=== PATIENT | female | born 1975 | race American Indian/Alaskan Native ===

== ENCOUNTER 2019-01-16 08:03 | Emergency (ER) | payer OTHER ==
[2019-01-16] MEDS ORDERED: ZOFRAN IV ONE (08:21)
[2019-01-16] MEDS ORDERED: MORPHINE IV ONE (08:21)
--- NOTE | 2019-01-16 08:26 | Emergency Department Report ---
ED Abdominal Pain HPI - General Chief Complaint: Abdominal Pain Stated Complaint: LFT ABD PAIN Time Seen by Provider: 01/16/19 08:21 Source: patient Mode of arrival: Ambulatory Limitations: No Limitations - History of Present Illness Initial Comments: Mrs. Orr is a 43-year-old female with history of uterine fibroids and ectopic who presents with left lower quadrant pain for the past 4 days. 7 out of 10 severe pain. Hurts with walking laughing coughing. She's had diarrhea. She feels bloated. 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 NO vaginal bleeding. Her last menstrual cycle occurred last month. She is currently not on contraceptives. MD Complaint: abdominal pain -: Gradual, days(s) (4) Location: LLQ Radiation: none Severity: moderate, severe Severity scale (0 -10): 7 Quality: sharp Consistency: constant Improves With: nothing Worsens With: movement, other (urination) Associated Symptoms: diarrhea - Related Data Previous Rx's Medication Instructions Recorded Last Taken Type HYDROcodone/APAP 5-325 [[place] 1 each PO Q6HR PRN #10 tablet 01/16/19 Unknown Rx 5/325] Ibuprofen [Motrin 800 MG tab] 800 mg PO Q8HR PRN #15 tablet 01/16/19 Unknown Rx Allergies Allergy/AdvReac Type Severity Reaction Status Date / Time No Known Allergies Allergy Unverified 01/16/19 08:10 ED Review of Systems ROS: Stated complaint: LFT ABD PAIN Other details as noted in HPI Comment: All other systems reviewed and negative Constitutional: denies: fever, malaise Respiratory: denies: cough Gastrointestinal: abdominal pain, diarrhea Genitourinary: dysuria ED Past Medical Hx - Past Medical History Previous Medical History?: No - Surgical History Past Surgical History?: Yes Additional Surgical History: Ectopic - Social History Smoking Status: Never Smoker Substance Use Type: Alcohol - Medications Home Medications: Home Medications Medication Instructions Recorded Confirmed Last Taken Type HYDROcodone/APAP 5-325 [[place] 1 each PO Q6HR PRN #10 tablet 01/16/19 Unknown Rx 5/325] Ibuprofen [Motrin 800 MG tab] 800 mg PO Q8HR PRN #15 tablet 01/16/19 Unknown Rx ED Physical Exam - General Limitations: No Limitations General appearance: alert, in no apparent distress, other (appears in pain, walking gingerly holding stomach) - Head Head exam: Present: atraumatic, normocephalic - Eye Eye exam: Present: normal appearance - ENT ENT exam: Present: mucous membranes moist - Neck Neck exam: Present: normal inspection, full ROM - Respiratory Respiratory exam: Present: normal lung sounds bilaterally. Absent: respiratory distress, wheezes, rales, rhonchi - Cardiovascular Cardiovascular Exam: Present: regular rate, normal rhythm, normal heart sounds. Absent: systolic murmur, diastolic murmur, rubs, gallop - GI/Abdominal GI/Abdominal exam: Present: soft, distended (gravid uterus on palpation), normal bowel sounds. Absent: tenderness, guarding, rebound - Extremities Exam Extremities exam: Present: normal inspection - Neurological Exam Neurological exam: Present: alert, oriented X3 - Psychiatric Psychiatric exam: Present: normal affect, normal mood - Skin Skin exam: Present: warm, dry, intact, normal color. Absent: rash ED Course Vital Signs 01/16/19 08:10 Temperature 98.3 F Pulse Rate 74 Respiratory 18 Rate Blood Pressure 133/85 O2 Sat by Pulse 98 Oximetry ED Medical Decision Making - Lab Data Result diagrams: 01/16/19 08:24 01/16/19 08:24 - Radiology Data Radiology results: report reviewed - Medical Decision Making 43-year-old female presents to the left lower quadrant pain differential diagnosis includes pain due to uterine fibroids, ovarian cyst, diverticulitis, ectopic , ureteral calculus, urinary tract infection. Upon consideration of impressive physical exam, uterus is extremely large and protruding. I suspect pain is due to uterine fibroids. She does not have evidence of acute inflammatory process on CT scan. , I do not suspect ovarian torsion. She resides in [facility]. However she is in [place] for 2 months of training for a new position. She plans to have uterine fibroid embolization procedure. However, her new employment has cause a delay in her care. She is followed by musculoskeletal physician in [place]. Prescribed ibuprofen and [place]. Referred to local musculoskeletal physician. CT scan revealed multiple uterine fibroids and either complicated fibroids or ovarian cysts in the left adnexa Pain is much improved. Critical care attestation.: If time is entered above; I have spent that time in minutes in the direct care of this critically ill patient, excluding procedure time. ED Disposition Clinical Impression: Uterine fibroid, Abdominal pain Disposition: TO HOME OR SELFCARE Is pt being admited?: No Does the pt Need Aspirin: No Condition: Stable Instructions: Uterine Fibroids (ED), Abdominal Pain (ED) Prescriptions: Ibuprofen [Motrin 800 MG tab] 800 mg PO Q8HR PRN #15 tablet PRN Reason: Pain , Severe (7-10) HYDROcodone/APAP 5-325 [[place] 5/325] 1 each PO Q6HR PRN #10 tablet PRN Reason: Pain Referrals: MARY GRACE CHEN MD [Staff Physician] - 3-5 Days Forms: Work/School Release Form(ED)
[2019-01-16 08:36] LABS: Basophils % (Auto) 0.5 % (0.0-1.8); Eosinophils # (Auto) 0.2 K/mm3 (0.0-0.4); Hematocrit 37.9 % (30.3-42.9); Hemoglobin 12.5 gm/dl (10.1-14.3); Lymphocytes # (Auto) 1.5 K/mm3 (1.2-5.4); Lymphocytes % (Auto) 20.5 % (13.4-35.0); Mean Corpuscular HGB Conc 33 % (30-34); Mean Corpuscular Volume 84 fl (79-97); Monocytes # (Auto) 0.6 K/mm3 (0.0-0.8); Monocytes % (Auto) 8.9 % (0.0-7.3); Platelet Count 287 K/mm3 (140-440); Red Blood Count 4.54 M/mm3 (3.65-5.03); Red Cell Distribution Width 14.4 % (13.2-15.2)
[2019-01-16 08:40] LABS: Bilirubin,Urine NEG (Negative); Blood,Urine SM (Negative); Color,Urine Straw (Yellow); Mucus,Urine FEW /HPF; Protein,Urine <15 mg/dL mg/dL (Negative); Urobilinogen,Urine < 2.0 mg/dL (<2.0); WBC,Urine < 1.0 /HPF (0.0-6.0)
[2019-01-16 08:42] LABS: HCG Qualitative,Urine Negative (Negative)
[2019-01-16 08:45] LABS: BUN/Creatinine Ratio 11; Blood Urea Nitrogen 9 mg/dL (7-17); Calcium 9.4 mg/dL (8.4-10.2); Hemolysis Index 3
[2019-01-16] MEDS ORDERED: TORADOL IV ONE (09:29)
--- NOTE | 2019-01-16 12:11 | Cat Scan Report ---
CT of the abdomen and pelvis with intravenous contrast. INDICATION / CLINICAL INFORMATION: Abdominal pain. Left lower quadrant pain starting Saturday. TECHNIQUE: The patient received 60 cc Omnipaque [address] scans at this location are performed u sing CT dose reduction for ALARA by means of automated exposure control. COMPARISON: None available. FINDINGS: ABDOMEN: The liver, spleen, gallbladder, bile ducts, pancreas, adrenal glands, kidneys and bowel demo nstrate no significant abnormality. No adenopathy is seen. The lung bases are clear. PELVIS: The uterus is markedly enlarged and contains multiple large fibroids. The uterus and fibroids extend to the level of the inferior margin of the liver, well above the iliac crests. The uterus and fibroids measure approximately 21 cm in length. The largest fibroid is located in the right mid abdo men and measures 10.5 cm. This fibroid is subserosal or ligamentous in appearance. There is a tubular structure in the right lower quadrant/right adnexa which may represent hydrosalpin x. There is a 4.6 cm ovoid lesion along the left lateral margin of the uterus which could represent a complicated fibroid or a complicated ovarian cyst. No free fluid is seen. There is no evidence of ap pendicitis or diverticulitis. I do not identify a hernia. No acute osseous abnormality is seen. IMPRESSION: 1. Markedly enlarged uterus containing multiple fibroids. 2. Probable right hydrosalpinx. Hypoechoic abnormality in the left adnexa may be related to a fibroid or ovarian cyst. RECOMMENDATION: Transabdominal and transvaginal pelvic ultrasound may be helpful in further evaluatio n. Signer Name: Soto Victoria MD Signed: 01/16/2019 12:06 PM Workstation Name: [id number]
[2019-01-16 13:09] VITALS: BP 130/80
== END 2019-01-16 13:07 | disposition home or self-care (01) ==
LOC: ED 08:03
DX: D25.9 Leiomyoma of uterus, unspecified (principal)
CPT/HCPCS: 36415; 74177; 80048; 81001; 81025; 84703; 85025; 96374; 96375; 99284; J1885; J2270; J2405; Q9967